=== PATIENT | female | born 1960 | race Caucasian/White ===

== ENCOUNTER 2025-04-23 14:48 | Emergency (ER) | payer SELFPAY ==
[~2025-04-23] VITALS: Ht 157.5 cm; Wt 70.0 kg
[2025-04-23 14:50] VITALS: O2SAT 98
[2025-04-23 16:34] LABS: BASOPHILS % 0.7 % (0.0-2.0); EOSINOPHILS % 0.8 % (0.0-5.0); HEMATOCRIT. 33.7 % (36.0-48.0); HEMOGLOBIN. 11.4 g/dL (12.0-16.0); LYMPHOCYTES % 24.9 % (20.0-50.0); MEAN PLATELET VOLUME 6.6 fl (7.4-10.4); MONOCYTES % 8.8 % (2.0-8.0); NEUTROPHILS % 64.8 % (40.0-76.0); PLATELET 299 x1000/uL (130-400); RED BLOOD CELL COUNT 3.65 mill/uL (4.2-5.4); RED CELL DISTRIBUTION WIDTH 14.1 % (11.6-14.6)
[2025-04-23 16:44] LABS: INR 1.1
[2025-04-23 16:52] LABS: CREATININE 0.6 mg/dL (0.6-1.0); UREA NITROGEN BLOOD 15 mg/dL (9-23)
[2025-04-23 16:53] LABS: PROTEIN TOTAL 7.8 g/dL (6.0-8.3)
[2025-04-23 16:54] LABS: ASPARTATE AMINOTRANSFERASE 77 IU/L (<34); BILIRUBIN TOTAL 0.4 mg/dL (0.1-1.0)
[2025-04-23] MEDS: ONDANSETRON HCL 4MG/2ML INJ IV ONE (17:04)
[2025-04-23] MEDS: MORPHINE SULFATE 4 MG/ML INJ (FOR IV/IM USE) IV ONE (17:04)
[2025-04-23] MEDS: KETOROLAC 15MG/ML VIAL IV ONE (17:05)
[2025-04-23] MEDS: HYDROCODONE/ACETAMINOPHEN 5/325MG TABLET PO ONE (18:06)
[2025-04-23] MEDS: ACETAMINOPHEN 325MG TABLET PO ONE (18:06)
[2025-04-23] MEDS ORDERED: HYDR-4001 MT (19:33)
[2025-04-23] MEDS ORDERED: TOPUD PO (19:33)
[2025-04-23 20:02] VITALS: BP 124/70; PULSE 90; RESP 15; TEMP 37.2; O2SAT 96
== END 2025-04-23 20:10 | disposition home or self-care (01) ==
LOC: ER 14:48
DX: M84.421A Pathological fracture, right humerus, initial encounter for fracture (principal); I10 Essential (primary) hypertension; C79.51 Secondary malignant neoplasm of bone
CPT/HCPCS: 99284; 96374; 29105; 96375; 80053; 85025; 85610; 36415; 73080; J1885; J2405; J2270